=== PATIENT | female | born 1990 | race Two or more races ===

== ENCOUNTER 2017-07-02 23:52 | Emergency (ER) | payer SELFPAY ==
[~2017-07-02] VITALS: Ht 160 cm; Wt 52.2 kg
[~2017-07-02 23:52] MED LIST: DAYQUIL PO
--- NOTE | 2017-07-03 02:13 | NUR ---
Patient discharged to home in stable conditon. Written and verbal after care instructions given. Patient verbalizes understanding of instructions.
== END 2017-07-03 02:18 | disposition home or self-care (01) ==
LOC: ER 23:55
DX: B35.1 Tinea unguium (principal)
CPT/HCPCS: A4663

== ENCOUNTER 2017-11-19 23:40 | Emergency (ER) | payer OTHER ==
[~2017-11-19] VITALS: Ht 160 cm; Wt 72.6 kg
--- NOTE | 2017-11-19 23:54 | NUR ---
SHAYE HAIDER AT BEDSIDE FOR MSE.
[2017-11-20 00:19] LABS: *BILIRUBIN,URIN NEGATIVE (NEGATIVE); *BLOOD, URINE 3+ (NEGATIVE); *CLARITY,URINE CLOUDY (CLEAR); *COLOR,URINE YELLOW (YELLOW); *KETONES,URINE NEGATIVE (NEGATIVE); *PROTEIN,URINE 2+ (NEGATIVE); *UROBILINOGEN,URINE 0.2 E.U./dl (NORMAL); LEUKOCYTE ESTERASE ,URINE 1+ (NEGATIVE); NITRITE, URINE NEGATIVE (NEGATIVE); PH,URINE 5.5 (5.0-8.0); UGLUCOSE NEGATIVE (NEGATIVE)
[2017-11-20 00:29] LABS: RBC,URINE TNTC /HPF (0-3); WBC,URINE TNTC /HPF (0-3)
[2017-11-20 00:30] LABS: *URINE HCG, QUAL NEGATIVE (NEGATIVE); BACTERIA,URINE MANY /HPF (NONE SEEN); SQUAMOUS EPITHELIAL CELL,UR MODERATE /HPF (NONE SEEN); TRANSITIONAL EPI CELLS,URINE MODERATE /LPF (NONE SEEN)
--- NOTE | 2017-11-20 00:40 | NUR ---
Patient discharged to home in stable conditon. Written and verbal after care instructions given. Patient verbalizes understanding of instructions. Patient ambulaed out of ER in steady gait. VSS. No acute distress noted. All belongings [facility] pt.
[2017-11-20 00:45] VITALS: BP 115/94
== END 2017-11-20 00:46 | disposition home or self-care (01) ==
LOC: ER 23:42
DX: N39.0 Urinary tract infection, site not specified (principal)
CPT/HCPCS: 84703; 87077; 87086; A4663